=== PATIENT | female | born 1985 | race Caucasian/White ===

== ENCOUNTER 2017-05-26 08:34 | Inpatient (IN) | payer BC, OTHER ==
[~2017-05-26] VITALS: Ht 170.2 cm; Wt 61.2 kg
[2017-05-31 17:30] VITALS: BP 133/64
--- NOTE | 2017-05-31 17:30 | NUR ---
Pre-admission Notes: Seen client in intake at this time. Appears anxious and nervous about being in this environment. Reassurance was provided. Alert and oriented x 4. Verbally responsive. Able to answers questions readily during pre-admission interview. Patient education provided regarding the admission process. Patient verbalized good understanding. Able to answer questions readily regarding the admission process. Noted with good eye contact. Reports NKA. No seizure history. Verbalizes that she is here to detox from heroin and methamphetamine. Did not bring any home medications, She reports that she was diagnosed with Depression, Anxiety and Restless legs in 2016. She reports not having a PCP. COWS 3 BP 133/64, Pulse 99, Temp 97.3, RR 20, O2 sat at 99% via RA.
--- NOTE | 2017-05-31 17:47 | NUR ---
Admission Note: Admitted a 31 year old female under the care of Dr. Behzad Woods for medically supervised detoxification from opiates and methamphetamine. Patient remains alert and oriented x 4. Verbally responsive. Able to make her needs known. No changes in LOC noted from previous assessment. Respirations even and unlabored. No SOB noted. Skin warm and moist to touch. Body search done by female Yunno. No contraband was found. Skin is intact with multiple tattoos all over body noted. No rashes. No lesions noted. Abdomen soft and non-distended. BS (+) in all 4 quadrants. No complains of N/V/D or constipation noted. LBM was yesterday. Bladder non-distended. Able to provide urine for UDS and test. No complains of dysuria noted. Ambulatory ad dion with steady gait. Denies any complains of pain or discomfort noted. Complains of anxiety and is redirectable. Denies no seizure history and no allergies. Has past medical hx of depression, anxiety and restless legs, diagnosed in 2016. Reports not having a PCP. Longest period of sobriety was 45 days of August to September of 2016. Her LMP was 45 days ago. She reports taking Gabapentin 100 mg PO TID for restless legs but did not bring in any home medication, last taken was 2 months ago. Reports having substance abuse in the family, where mom, dad and grandfather uses. She reports that her usual withdrawal symptoms are watery eyes, yawning, stomach cramps, body aches and severe restless legs. 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 Substance Use as ff: 1. Heroin - since 28 years old. Uses 1 to 1 1/2 gram IV daily x 8 months, last use was on 05/31/2017 at 1530 "3 points." 2. Methamphetamine - since 28 years old. Smoked 1 gram every day to every other day x 8 months, last use was on 05/31/2017 at 0.1g at 1530. Treatment History: 1. [facility] - x [address] Woods in to see the patient at this time and entered orders. Orders noted and carried out.
[2017-05-31] MEDS ORDERED: GABA-532 PO (18:12)
[2017-05-31] MEDS ORDERED: METHOCARBAMOL 750 MG TABLET PO PRN (18:15)
[2017-05-31] MEDS ORDERED: MAG HYDROX/AL HYDROX/SIMETH 30 ML LIQUID UDC PO PRN (18:15)
[2017-05-31] MEDS ORDERED: MAGNESIUM HYDROXIDE 30 ML LIQUID UDC PO PRN (18:15)
[2017-05-31] MEDS ORDERED: TRAZODONE 50 MG TABLET PO PRN (18:15)
[2017-05-31] MEDS ORDERED: DICYCLOMINE HCL 20 MG TABLET PO PRN (18:15)
[2017-05-31] MEDS ORDERED: BUPRENORPHINE HCL 2 MG TAB.SUBL SL PRN (18:15)
[2017-05-31] MEDS ORDERED: LOPERAMIDE HCL 2 MG CAPSULE PO PRN ×2 (18:15)
[2017-05-31] MEDS ORDERED: MIRALAX 17 GM POWD.PACK PO PRN (18:15)
[2017-05-31] MEDS ORDERED: ACETAMINOPHEN 325 MG TABLET PO PRN (18:15)
[2017-05-31] MEDS ORDERED: HYDROXYZINE PAMOATE 25 MG CAPSULE PO PRN (18:15)
[2017-05-31] MEDS ORDERED: CLONIDINE HCL 0.1 MG TABLET PO PRN (18:15)
[2017-05-31 18:24] LABS: *AMPHETAMINE, URINE POSITIVE (NEGATIVE); *BARBITURATE, URINE NEGATIVE (NEGATIVE); *CANNABINOID, URINE NEGATIVE (NEGATIVE); *COCCAINE, URINE NEGATIVE (NEGATIVE); *OPIATE, URINE POSITIVE (NEGATIVE); *PHENCYCLIDINE SCREEN,URINE NEGATIVE (NEGATIVE)
--- NOTE | 2017-05-31 19:04 | NUR ---
End of Shift Notes: Patient admitted today for opiate and methamphetamine dependence. Taper will be started in AM. VS monitored. No significant abnormalities noted. NKA. FULL CODE. Regular diet. On fall and seizure precautions. Withdrawal symptoms closely monitored. Last COWS 3. Will continue to monitor closely.
--- NOTE | 2017-05-31 19:15 | NUR ---
START OF SHIFT Received 31 year old female patient admitted on 05/26/17 for Heroin and Methamphetamine dependency. Pt is full code with NKA. She reports a PMHx of depression, anxiety and restless legs. She reports using Heroin IV 1-1.5 gram daily for 8 months. Last dose was "3 points" on 05/31/17. And Methamphetamine (Smoke) 1 gram every day to every other day for 8 months. Last dose was 0.1 gram on 05/31/17. Per endorsement, pt did not receive or request PRN medications. Pt is alert and oriented x4, breathing is even and unlabored, safety measures in place. Will continue to monitor.
[2017-05-31 20:00] VITALS: BP 113/71
[2017-05-31 20:00] LABS: BASOPHILS # (AUTO) 0.1 K/uL (0.0-8.0); BASOPHILS % (AUTO) 0.7 % (0.0-2.0); EOSINOPHILS # (AUTO) 0.6 K/uL (0.0-0.7); EOSINOPHILS % (AUTO) 5.5 % (0.0-7.0); HEMATOCRIT 35.2 % (37-47); HEMOGLOBIN 11.1 G/DL (12.0-16.0); LYMPHOCYTES # (AUTO) 2.6 K/UL (0.8-4.8); LYMPHOCYTES % (AUTO) 22.6 % (20.5-51.5); MEAN CORPUSCULAR HEMOGLOBIN 22.5 UUG (27.0-31.0); MEAN CORPUSCULAR HGB CONC 31 g/dL (32.0-37.0); MEAN CORPUSCULAR VOLUME 71.7 FL (81.0-99.0); MONOCYTES # (AUTO) 0.5 K/UL (0.1-1.30); MONOCYTES % (AUTO) 4.3 % (0.0-11.0); NEUTROPHILS # (AUTO) 7.5 K/UL (1.8-8.9); NEUTROPHILS % (AUTO) 66.9 % (38.5-71.5); PLATELET COUNT (AUTO) 351 K/UL (150-450); RED BLOOD CELL COUNT(AUTO) 4.92 MIL/UL (4.2-5.4); WHITE BLOOD COUNT (AUTO) 11.3 K/UL (4.0-11.2)
[2017-05-31 20:10] LABS: ALANINE AMINOTRANSFERASE 18 U/L (14-59); ALKALINE PHOSPHATASE 79 U/L (50-136); ASPARTATE AMINOTRANSFERASE 17 U/L (15-37); BILIRUBIN,TOTAL 0.4 mg/dL (0.2-1.0); CARBON DIOXIDE 27 mmol/L (21-32); CHLORIDE 102 mmol/L (98-107); CREATININE 0.6 mg/dL (0.6-1.3); GLUCOSE 80 mg/dL (74-106); MAGNESIUM 2.3 mg/dL (1.8-2.4); POTASSIUM 3.7 mmol/L (3.5-5.1); TOTAL PROTEIN, SERUM 9.3 g/dL (6.4-8.2); UREA NITROGEN, BLOOD 17 mg/dL (7-18)
[2017-05-31 20:19] LABS: ETHANOL < 3 MG/DL (0-0); THYROID STIMULATING HORMONE 3.117 mIU/mL (0.358-3.740)
[2017-05-31 20:23] LABS: BAND % (MANUAL) 5 % (0-10); EOSINOPHILS % (MANUAL) 7 % (0-8); LYMPHOCYTES % (MANUAL) 23 % (20-40); MONOCYTES % (MANUAL) 5 % (2-10); NEUTROPHILS % (MANUAL) 60 % (42-75)
[2017-05-31 20:34] LABS: *URINE HCG, QUAL NEGATIVE (NEGATIVE)
[2017-05-31] MEDS: GABAPENTIN 300 MG CAPSULE PO SCH (22:15)
--- NOTE | 2017-05-31 22:15 | NUR ---
PRN TRAZODONE/VISTARIL Pt complains of anxiety and inability to sleep. Pt observed to be restless and unable to sit still. PRN Trazodone and Vistaril administered as ordered. Breathing is even and unlabored, safety measures in place. Will monitor effectiveness.
--- NOTE | 2017-05-31 23:15 | NUR ---
PRN TRAZODONE/VISTARIL REASSESSMENT PRN medications effective. Pt is lying in bed with eyes closed noted to be asleep. Respirations 16, breathing is even and unlabored. Safety measures in place. Will continue to monitor.
[2017-06-01] VITALS: BP 111/69
--- NOTE | 2017-06-01 04:00 | NUR ---
VITALS/COWS 0400 vitals refused. COWS deferred d/t pt lying in bed with eyes closed noted to be asleep. Respirations 16, breathing is even and unlabored, safety measures in place. Will monitor.
--- NOTE | 2017-06-01 07:21 | NUR ---
END OF SHIFT Pt is a 31 year old female patient admitted on 05/26/17 for Heroin and Methamphetamine dependency. Pt is full code with NKA. She reports a PMHx of depression, anxiety and restless legs. At 2215 she received PRN Vistaril and Trazodone. She slept a total of 8 hrs, Intake: 1500mL, Void: x3, BM:0. COWS:3. Pt remains alert and oriented x4, breathing is even and unlabored, safety measures in place. Endorsed to oncoming shift.
--- NOTE | 2017-06-01 07:28 | NUR ---
Start Of Shift Report Received, Pt is a 31 year old female patient admitted on 05/26/17 for Heroin and Methamphetamine dependency. Pt is full code regular diet, on fall and seizure precautions, denies any food or drug allergies but reports a PMHx of depression, anxiety and restless legs. Pt is on a 5 day Ativan taper, that started today. Pt received PRN Vistaril and Trazodone, both meds effective per night cleaner nurse. She slept a total of 8 hrs, Pts last COWS:3. Pt remains alert and oriented x4, breathing is even and unlabored, safety measures in place. Will continue to monitor and provide care.
[2017-06-01 08:00] VITALS: BP 104/67
[2017-06-01] MEDS ORDERED: TUBERCULIN,PURIF.PROT.DERIV. 5 TU/0.1 ML TEST ID ONE (09:00)
[2017-06-01] MEDS: MULTIVITAMINS,THERAPEUTIC TABLET PO SCH (09:33)
[2017-06-01] MEDS: GABAPENTIN 300 MG CAPSULE PO SCH ×3 (09:33→21:44)
[2017-06-01] MEDS: BUPRENORPHINE HCL 2 MG TAB.SUBL SL SCH ×5 (09:34→21:44)
[2017-06-01 12:00] VITALS: BP 112/68
[2017-06-01] MEDS: IBUPROFEN 600 MG TABLET PO PRN (13:34)
[2017-06-01] MEDS: ONDANSETRON ODT 4 MG TAB.RAPDIS SL PRN ×2 (13:34→21:44)
--- NOTE | 2017-06-01 13:34 | NUR ---
PRN MEDICATION Pt c/o nausea requested something for relief, non-pharmacological techniques interventions provided x3 and were not effective. PRN Zofran, Robaxin and Motrin administered PO, educated pt about s/e of medication and when to contact nurse. all needs met, all safety measures in place, will continue to monitor.
--- NOTE | 2017-06-01 14:34 | NUR ---
PRN MEDICATION Medication effective nausea decreased, and pt verbalized relief, all needs met will continue to monitor
[2017-06-01 16:00] VITALS: BP 116/70
[2017-06-01] MEDS: ONDANSETRON 4 MG/2 ML VIAL IM PRN (17:35)
--- NOTE | 2017-06-01 17:35 | NUR ---
PRN MEDICATION Pt had an episode of vomiting x1 requested something for relief, PRN Zofran IM administered, all needs met will continue to monitor.
--- NOTE | 2017-06-01 18:46 | NUR ---
Reassessment PRN Medication effective pt did not have any more episodes of vomiting and reported not feeling nauseas anymore, all needs met will continue to monitor.
--- NOTE | 2017-06-01 19:15 | NUR ---
START OF SHIFT Received 31 year old female patient admitted on 05/26/17 for Heroin IV and Meth dependency. Pt is full code with NKA. She reports a PMHx of depression, anxiety and restless legs. She reports using Heroin IV 1-1.5 gram daily for 8 months. Last dose "3 points" on 05/31/17. Methamphetamine (smoke) 1 gram every day-every other day. Last dose 0.1 gram on 05/31/17. Per endorsement, pt received PRN Robaxin, Motrin and Zofran. Pt placed on 5 day Subutex taper started today and tolerating well. Pt is alert and oriented x4, breathing is even and unlabored. Safety measures in place. Will continue to monitor.
--- NOTE | 2017-06-01 19:17 | NUR ---
End Of Shift Report given, Pt is a 31 year old female patient admitted on 05/26/17 for Heroin and Methamphetamine dependency. Pt is full code regular diet, on fall and seizure precautions, denies any food or drug allergies but reports a PMHx of depression, anxiety and restless legs. Pt is on a 5 day Ativan taper, VS monitored closely q 4 hours. Withdrawal symptoms were closely monitored. Initial COWS 13. Patient encouraged adequate PO fluid intake as tolerated. Patient presented with tremors and anxiety during the day. Last COWS 9. Per patient, Subutex has been helping her with her withdrawal symptoms. Did not eat much of her meals. Pt received PRN Robaxin, Motrin, Zofran SL and Zofran IM. Pt had 1 episode of vomiting, nut medications were effective and pt was no longer nauseous. Patient encouraged to attend group therapies/sessions to learn new coping skills to recent relapse, patient denies SI/HI. Participated in group and therapy sessions. All needs met and attended
[2017-06-01 20:00] VITALS: BP 125/85
--- NOTE | 2017-06-01 21:44 | NUR ---
PRN ZOFRAN/BENTYL Pt complains of abdominal spasms and nausea. PRN Zofran and Bentyl administered as ordered. Breathing even and unlabored. Safety measures in place. Will monitor.
--- NOTE | 2017-06-01 22:00 | NUR ---
MEDICATION REFUSAL 2100 dose of Subutex 4 mg refused. Risks/benefits explained x3. Pt still refused medication. Breathing even and unlabored, safety measures in place. Will continue to monitor.
--- NOTE | 2017-06-01 22:44 | NUR ---
PRN ZOFRAN/BENTYL REASSESSMENT PRN medication effective. Pt lying in bed with eyes closed noted to be asleep. Respirations 16, breathing is even and unlabored. Safety measures in place. Will continue to monitor.
--- NOTE | 2017-06-02 | NUR ---
VITALS REFUSED/COWS DEFERRED 0000 vitals refused. COWS deferred d/t pt lying in bed with eyes closed noted to be asleep. Respirations 16, breathing is even and unlabored. Safety measures in place. Will monitor.
--- NOTE | 2017-06-02 04:00 | NUR ---
VITALS REFUSED/COWS DEFERRED 0400 vitals refused. COWS deferred d/t pt lying in bed with eyes closed noted to be asleep. Respirations 16, breathing is even and unlabored. Safety measures in place. Will continue monitor.
--- NOTE | 2017-06-02 07:05 | NUR ---
Start of Shift Endorsement received from nightshift nurse. PT is a 31 y/o female admitted for Heroin and Meth . Pt has been placed on a 5 day Subutex taper. Pt is moderately withdrawing at this time AEB COWS 5 at 0400. Pt received PRN Zofran and Bentyl for stomach cramps and nausea. PT reports sleeping 7 hours. VS WNL. Full Code. PT is alert and oriented x4. Pt is in STABLE condition at this time. Remains compliant with medication and diet regimen. All needs have been met, All safety measures in place per hospital policy. Bed in lowest position, side rails up x2, call-light within reach. Will continue to monitor
--- NOTE | 2017-06-02 07:27 | NUR ---
END OF SHIFT Pt is 31 year old female patient admitted on 05/26/17 for Heroin IV and Meth dependency. Pt is full code with NKA. She reports a PMHx of depression, anxiety and restless legs. She continues on a 5 day Subutex taper and tolerating. At 2144 pt received PRN Zofran and Bentyl. She refused her 2100 dose of Subutex, risks and benefits were explained. Pt still refused. She slept a total of 8hrs, Intake: 855mL, Void: x1, BM:0, COWS:8. Pt remains alert and oriented x4, breathing is even and unlabored. Safety measures in place. Endorsed to oncoming shift.
[2017-06-02 08:00] VITALS: BP 130/75
[2017-06-02] MEDS: BUPRENORPHINE HCL 2 MG TAB.SUBL SL SCH ×3 (08:58→22:05)
[2017-06-02] MEDS: GABAPENTIN 300 MG CAPSULE PO SCH (08:58)
[2017-06-02] MEDS: MULTIVITAMINS,THERAPEUTIC TABLET PO SCH (08:59)
[2017-06-02] MEDS: IBUPROFEN 600 MG TABLET PO PRN (09:02)
[2017-06-02] MEDS: ONDANSETRON ODT 4 MG TAB.RAPDIS SL PRN (09:02)
[2017-06-02 11:10] LABS: HEPATITIS B SURFACE AG Negative (Negative)
[2017-06-02 12:00] VITALS: BP 119/80
[2017-06-02] MEDS: GABAPENTIN 400 MG CAPSULE PO SCH ×2 (15:11→22:00)
[2017-06-02] MEDS: DICYCLOMINE HCL 20 MG TABLET PO SCH ×2 (15:12→22:00)
[2017-06-02] MEDS: BACLOFEN 10 MG TABLET PO SCH ×2 (15:12→22:00)
[2017-06-02 16:00] VITALS: BP 136/80
--- NOTE | 2017-06-02 18:46 | NUR ---
End of Shift Endorsement given to nightshift nurse. PT is a 31 y/o female admitted for Heroin and Meth . Pt has been placed on a 5 day Subutex taper. Pt is moderately withdrawing at this time AEB COWS 8 at 1600. Pt received PRN Zofran for nausea, pt reports the medication was effective. Educated pt on medication and diet regimen. Encouraged pt to participate in groups and activities. Encouraged pt to drink more fluids. Intake: 555ml, Void x2, BM x0. VS WNL. Full Code. PT is alert and oriented x4. Pt is in STABLE condition at this time. Remains compliant with medication and diet regimen. All needs have been met, All safety measures in place per hospital policy. Bed in lowest position, side rails up x2, call-light within reach. Will continue to monitor
[2017-06-02 20:00] VITALS: BP 149/98
--- NOTE | 2017-06-02 20:00 | NUR ---
Start of Shift PT is a 31 y/o female admitted for Heroin and Meth . Pt has been placed on a 5 day Subutex taper. Pt is moderately withdrawing at this time AEB COWS 5 at 1999. Educated pt on medication and diet regimen. PT is alert and oriented x4 and full code. Pt is in STABLE condition at this time. Remains compliant with medication and diet regimen. All needs have been met, All safety measures in place per hospital policy. Pt is resting with bed in lowest position, side rails up x2, call-light within reach. Will continue to monitor
[2017-06-02 20:45] VITALS: BP 149/98
[2017-06-03] VITALS: BP 126/84
[2017-06-03 04:00] VITALS: BP 137/90
--- NOTE | 2017-06-03 07:05 | NUR ---
Start of Shift Endorsement received from nightshift nurse. PT is a 31 y/o female admitted for Heroin and Meth . Pt has been placed on a 5 day Subutex taper. Pt is moderately withdrawing at this time AEB COWS 5 at 0400. Pt has not received any PRN medications. Pt reports one episode of emesis and continues nausea. Pt refused zofran. PT reports sleeping 8 hours. VS WNL with periods of bradycardia. Full Code. PT is alert and oriented x4. Pt is in STABLE condition at this time. Remains compliant with medication and diet regimen. All needs have been met, All safety measures in place per hospital policy. Bed in lowest position, side rails up x2, call-light within reach. Will continue to monitor
[2017-06-03 08:00] VITALS: BP 128/84
[2017-06-03] MEDS ORDERED: BUPRENORPHINE HCL 2 MG TAB.SUBL SL SCH (09:00)
[2017-06-03] MEDS: ONDANSETRON 4 MG/2 ML VIAL IM PRN (09:03)
--- NOTE | 2017-06-03 09:19 | NUR ---
Therapist prompted client about group times. Client stated she would go to groups today if she feels better.
[2017-06-03] MEDS: GABAPENTIN 400 MG CAPSULE PO SCH ×3 (09:34→20:55)
[2017-06-03] MEDS: MULTIVITAMINS,THERAPEUTIC TABLET PO SCH (09:35)
[2017-06-03] MEDS: BACLOFEN 10 MG TABLET PO SCH ×3 (09:35→20:55)
[2017-06-03] MEDS: DICYCLOMINE HCL 20 MG TABLET PO SCH ×3 (09:35→20:55)
[2017-06-03] MEDS ORDERED: PANTOPRAZOLE SODIUM 40 MG TABLET.DR PO ONE (10:15)
[2017-06-03] MEDS ORDERED: PROMETHAZINE HCL 25 MG/1 ML VIAL IM ONE (10:15)
[2017-06-03] MEDS ORDERED: DICYCLOMINE HCL 20 MG/2 ML AMPUL IM ONE (10:15)
[2017-06-03 12:00] VITALS: BP 116/75
--- NOTE | 2017-06-03 13:10 | NUR ---
Midline insertion Pt had a midline inserted in the left should at 1310. Will began IV fluids per MD orders
[2017-06-03] MEDS: IV D5 1/2 NS 1000 ML 1,000 ML IV PRN ×2 (13:20→22:33)
[2017-06-03] MEDS: BUPRENORPHINE HCL 2 MG TAB.SUBL SL SCH ×2 (15:46→20:56)
[2017-06-03 16:00] VITALS: BP 127/73
--- NOTE | 2017-06-03 18:28 | NUR ---
End of Shift Endorsement given to nightshift nurse. PT is a 31 y/o female admitted for Heroin and Meth . Pt has been placed on a 5 day Subutex taper. Pt is moderately withdrawing at this time AEB COWS 6 at 1600. Pt received PRN Zofran IM for nausea, pt has also received one time dose of Phenergan and Bentyl IM. Pt has a 18g Midline inserted in her left shoulder at 1310. PT has been placed on D5 1/2 NS at 120ml/hr per Dr. Woods. Pt has been encouraged to drink more fluids and to eat. PT has not been eating. PT has snacked on some crackers and ice cream. Encouraged pt to participate in groups and activities. . Intake: 500ml, Void x1, BM x0. VS WNL. Full Code. PT is alert and oriented x4. Pt is in STABLE condition at this time. Remains compliant with medication and diet regimen. All needs have been met, All safety measures in place per hospital policy. Bed in lowest position, side rails up x2, call-light within reach. Will continue to monitor
--- NOTE | 2017-06-03 19:45 | NUR ---
START OF SHIFT Received report from day shift nurse. Pt is lying in bed resting. She is a 31 yo female admitted to [facility] on 05/31 for Opiate and Meth dependence. Pt is A&Ox3 and ambulatory. NKA, full code status, and on a regular diet. PMH of depression, anxiety, and restless legs. On admission she admitted to using heroin IV 1-1.5 grams per day and methamphetamine 1 gram. She had a mid-line placed on the left upper arm today that is patent and intact. D5 1/2 NS running per orders. Pt has visible perspiration on the forehead, chills, and reports mild body aches. She denies N/V. Fall and seizure precautions in place. Bed is down with call light in reach.
[2017-06-03 20:00] VITALS: BP 124/87
[2017-06-04] VITALS: BP 130/91
[2017-06-04 04:00] VITALS: BP 113/78
[2017-06-04] MEDS: IV D5 1/2 NS 1000 ML 1,000 ML IV PRN ×2 (06:53→19:49)
[2017-06-04] MEDS: PANTOPRAZOLE SODIUM 40 MG TABLET.DR PO SCH (06:54)
--- NOTE | 2017-06-04 07:20 | NUR ---
END OF SHIFT Report provided to day shift nurse. Pt is lying in bed resting. She is a 31 yo female admitted to [facility] on 05/31 for Opiate and Meth dependence. She is alert, oriented, and ambulatory. NKA, full code status, and on a regular diet. PMH of depression, anxiety, and restless legs. On admission she admitted to using heroin IV 1-1.5 grams per day and methamphetamine 1 gram. She had a mid-line placed on the left upper arm yesterday that is patent and intact. D5 1/2 NS running per orders. Dressing change to be performed today. Pt had visible perspiration, hot and cold flashes, and body aches. No N/V throughout the shift. Last COWS was 3 after medication administration. She drank 1210mL and slept for 10 hours. Safety measures in place. Bed is down with call light in reach.
--- NOTE | 2017-06-04 08:00 | NUR ---
START OF SHIFT Rcvd endorsement from ongoing nurse, 31 y/o admitted for heroin withdrawal, she is on day 4rd of 5 Subutex taper. tolerating well, with no ASE, last COWS 3 @ 2400. She had an uneventful night, she slept 10 hrs. She has a mid-line on L upper arm patent, dressing intact. D5 1/2 NS running at prescribed rate for hydration, client tolerating well. Client is in bed, a/o x4. she presents with depressed mood, flat affect, she reports restless legs, abdominal cramps, and fatigue, she denies any N/V/D. Client with moist skin, abdomen soft, nontender, quadrant x 4 active. Encourage client to increase fluid intake as tolerated to facilitate detox. Encourage client to attend group therapy for skills to maintain sobriety. She denies any history of withdrawal induced seizures. Client is on seizure precautions. NKA, full code, regular diet. Call light within reach. Side rails x 2 up/padded. Will continue to monitor.
[2017-06-04 08:17] LABS: BASOPHILS # (AUTO) 0.3 K/uL (0.0-8.0); BASOPHILS % (AUTO) 2.2 % (0.0-2.0); EOSINOPHILS # (AUTO) 0.8 K/uL (0.0-0.7); EOSINOPHILS % (AUTO) 7.1 % (0.0-7.0); HEMATOCRIT 35.4 % (37-47); HEMOGLOBIN 11.3 G/DL (12.0-16.0); LYMPHOCYTES # (AUTO) 3.4 K/UL (0.8-4.8); MEAN CORPUSCULAR HEMOGLOBIN 22.9 UUG (27.0-31.0); MEAN CORPUSCULAR HGB CONC 32 g/dL (32.0-37.0); MONOCYTES # (AUTO) 0.7 K/UL (0.1-1.30); MONOCYTES % (AUTO) 5.7 % (0.0-11.0); NEUTROPHILS # (AUTO) 6.4 K/UL (1.8-8.9); PLATELET COUNT (AUTO) 380 K/UL (150-450); RED BLOOD CELL COUNT(AUTO) 4.92 MIL/UL (4.2-5.4); WHITE BLOOD COUNT (AUTO) 11.6 K/UL (4.0-11.2)
[2017-06-04 08:49] LABS: CREATININE 0.7 mg/dL (0.6-1.3); MAGNESIUM 2.2 mg/dL (1.8-2.4); PHOSPHOROUS 2.7 mg/dL (2.5-4.9); POTASSIUM 3.2 mmol/L (3.5-5.1)
[2017-06-04 08:53] VITALS: BP 109/71
[2017-06-04] MEDS: GABAPENTIN 400 MG CAPSULE PO SCH ×3 (09:52→21:02)
[2017-06-04] MEDS: MULTIVITAMINS,THERAPEUTIC TABLET PO SCH (09:53)
[2017-06-04] MEDS: DICYCLOMINE HCL 20 MG TABLET PO SCH ×3 (09:53→21:02)
[2017-06-04] MEDS: BACLOFEN 10 MG TABLET PO SCH ×3 (09:53→21:02)
[2017-06-04] MEDS: BUPRENORPHINE HCL 2 MG TAB.SUBL SL SCH ×3 (09:53→21:02)
--- NOTE | 2017-06-04 10:00 | NUR ---
MD NOTIFICATION Dr. Aly made aware of abnormal labs, client is asymptomatic. Will continue to monitor.
[2017-06-04 10:26] LABS: BASOPHILS % (MANUAL) 2 % (0-2); EOSINOPHILS % (MANUAL) 9 % (0-8); LYMPHOCYTES % (MANUAL) 27 % (20-40); MONOCYTES % (MANUAL) 4 % (2-10); NEUTROPHILS % (MANUAL) 57 % (42-75)
[2017-06-04 10:31] LABS: REACTIVE LYMPHOCYTES 1 % (0-0)
[2017-06-04 12:55] VITALS: BP 104/78
[2017-06-04] MEDS: POTASSIUM CHLORIDE 50 ML IV SCH ×4 (12:58→16:36)
[2017-06-04 13:45] LABS: *BILIRUBIN,URIN NEGATIVE (NEGATIVE); *BLOOD, URINE NEGATIVE (NEGATIVE); *CLARITY,URINE CLEAR (CLEAR); *COLOR,URINE YELLOW (YELLOW); *KETONES,URINE NEGATIVE (NEGATIVE); *PROTEIN,URINE NEGATIVE (NEGATIVE); LEUKOCYTE ESTERASE ,URINE NEGATIVE (NEGATIVE); NITRITE, URINE NEGATIVE (NEGATIVE); UGLUCOSE NEGATIVE (NEGATIVE)
[2017-06-04 13:56] LABS: BACTERIA,URINE NONE SEEN /HPF (NONE SEEN); RBC,URINE NONE SEEN /HPF (0-3); SQUAMOUS EPITHELIAL CELL,UR MODERATE /HPF (NONE SEEN); WBC,URINE 0-3 /HPF (0-3)
--- NOTE | 2017-06-04 14:00 | NUR ---
MD Notification Dr. Aly notified of urinalysis results, NNO at this time.
--- NOTE | 2017-06-04 16:05 | NUR ---
Mid-line dressing changed, line intact/patent, no redness or swelling noted, client tolerated well.
[2017-06-04 16:55] VITALS: BP 113/70
--- NOTE | 2017-06-04 18:55 | NUR ---
END OF SHIFT Will endorse client to incoming nurse, client is in room, a/o x 4, she continues to present with depressed mood, flat affect, abdominal cramps, restless legs, decreased appetite, and fatigue. She denies any N/V/D. She is on 4th of 5 day Subutex taper, tolerating well, last COWS 4 @ 1700. She has a mid-line on L upper arm patent, dressing changed @ 1600, no redness or swelling noted. Client continues on fluid therapy for hydration, tolerating well. She completed KCl 10 mEq/50 mL IVpb x 4 bags for hypokalemia, tolerated well. Urinalysis ordered, Dr. Aly notified of results, NNO at this time. Client is fully ambulatory. Client was not compliant with group therapy. Adequate PO intake 2105mL, void x 2. Call light within reach. Safety measures rendered and all needs met.
[2017-06-04 20:00] VITALS: BP 100/60
--- NOTE | 2017-06-04 20:00 | NUR ---
1999 Patient received awake, alert and lying flat in her bed, with her head towards the foot of her bed, watching television. Patient responds to nurse's greeting and introduction with, " Hi, how are up?" Patient is oriented to person, place, day, date and her personal situation. Easily reoriented to time. Patient's color is tannish-pink and her skin is warm, very slightly moist and intact. New IV bag of D5.45 NS hung (1000 ml) to run 120 ml/hr via IV pump into left upper outer arm. IV site is clean, dry and has clean site dressing noted intact. No sx of any infiltration at needle site. Patient denies any pain or other discomfort and she states that she has attended some [facility] groups, however she did not attend PM group tonight. Patient states further that she did " eat a little of her regular diet trays today and she is taking fluids "better" this evening. Vital signs are: 98.3-75-16 100/60, O2 Sat 100%, COWS 2 . Patient offers no requests for anything or c/o anything at this time, and she is cooperative and verbally appropriate when interacting with nurse. Patient was admitted on 05/31/17 for Heroin and Methamphetamine withdrawal and she is currently on a 5-Day Subutex medication taper, which she is apparently tolerating well thus far. Bed is locked and bed rails are up X 2 and call light within patient's easy reach.
--- NOTE | 2017-06-05 | NUR ---
Patient refused to be awakened for V/S to be done at this time.
--- NOTE | 2017-06-05 04:00 | NUR ---
Patient refused to be awakened for V/S to be done at this time.
--- NOTE | 2017-06-05 06:30 | NUR ---
0630 Patient slept a total of 8 hours and she had 2 voids and no stools. Total intake was 1,109 ml p.o. IV continues at 120ml/hr-D5.45 NS via IV pump. No sx infiltration at IV site, left upper, outer arm. V/SS afebrile, last CIWA 1 at 0000. No PRN medications given this shift. Patient took shower and went out hospital patio X 1 for smoke during this shift. Patient is presently sleeping comfortably with eyes closed and respirations quiet, even, unlabored at 12.
[2017-06-05] MEDS: PANTOPRAZOLE SODIUM 40 MG TABLET.DR PO SCH (07:12)
--- NOTE | 2017-06-05 07:54 | NUR ---
START OF SHIFT Rcvd endorsement from ongoing nurse, 31 y/o admitted for heroin withdrawal, she is on last day of 5 Subutex taper. tolerating well, with no ASE, last COWS 2 @ 2400. She had an uneventful night, she slept 8 hrs. She has a mid-line on L upper arm patent, dressing intact. D5 1/2 NS running at prescribed rate for hydration, client tolerating well. Client is in bed, a/o x4. she presents with anxious mood, flat affect, she denies any N/V/D. Client with moist skin, abdomen soft, nontender, quadrant x 4 active, she reports restless legs, abdominal cramps, and fatigue. Encourage client to increase fluid intake as tolerated to facilitate detox. Encourage client to attend group therapy for skills to maintain sobriety. She denies any history of withdrawal induced seizures. Client is on seizure precautions. NKA, full code, regular diet. Call light within reach. Side rails x 2 up/padded. Will continue to monitor.
[2017-06-05 08:20] VITALS: BP 113/62
[2017-06-05 08:57] LABS: BASOPHILS # (AUTO) 0.1 K/uL (0.0-8.0); BASOPHILS % (AUTO) 0.8 % (0.0-2.0); EOSINOPHILS # (AUTO) 1.2 K/uL (0.0-0.7); EOSINOPHILS % (AUTO) 11.5 % (0.0-7.0); HEMATOCRIT 34.6 % (37-47); LYMPHOCYTES # (AUTO) 3.8 K/UL (0.8-4.8); LYMPHOCYTES % (AUTO) 37.6 % (20.5-51.5); MEAN CORPUSCULAR HEMOGLOBIN 23.1 UUG (27.0-31.0); MEAN CORPUSCULAR HGB CONC 32 g/dL (32.0-37.0); MEAN CORPUSCULAR VOLUME 72.5 FL (81.0-99.0); MONOCYTES # (AUTO) 0.6 K/UL (0.1-1.30); MONOCYTES % (AUTO) 6.2 % (0.0-11.0); NEUTROPHILS # (AUTO) 4.5 K/UL (1.8-8.9); NEUTROPHILS % (AUTO) 43.9 % (38.5-71.5); PLATELET COUNT (AUTO) 354 K/UL (150-450); RED BLOOD CELL COUNT(AUTO) 4.77 MIL/UL (4.2-5.4); WHITE BLOOD COUNT (AUTO) 10.2 K/UL (4.0-11.2)
[2017-06-05] MEDS: GABAPENTIN 400 MG CAPSULE PO SCH ×3 (09:00→21:25)
[2017-06-05] MEDS: DICYCLOMINE HCL 20 MG TABLET PO SCH ×3 (09:00→21:25)
[2017-06-05] MEDS ORDERED: BUPRENORPHINE HCL 2 MG TAB.SUBL SL SCH (09:00)
[2017-06-05] MEDS: BACLOFEN 10 MG TABLET PO SCH ×3 (09:00→21:25)
[2017-06-05] MEDS: MULTIVITAMINS,THERAPEUTIC TABLET PO SCH (09:00)
[2017-06-05 09:11] LABS: CREATININE 0.7 mg/dL (0.6-1.3); MAGNESIUM 2.1 mg/dL (1.8-2.4); PHOSPHOROUS 3.6 mg/dL (2.5-4.9); POTASSIUM 3.1 mmol/L (3.5-5.1)
[2017-06-05] MEDS: IV D5 1/2 NS 1000 ML 1,000 ML IV PRN (09:33)
--- NOTE | 2017-06-05 11:00 | NUR ---
MD NOTIFICATION Dr. lAy made aware of abnormal labs, client is asymptomatic. Will continue to monitor.
[2017-06-05 12:15] LABS: BAND % (MANUAL) 3 % (0-10); EOSINOPHILS % (MANUAL) 10 % (0-8); LYMPHOCYTES % (MANUAL) 42 % (20-40); MONOCYTES % (MANUAL) 3 % (2-10); NEUTROPHILS % (MANUAL) 42 % (42-75)
[2017-06-05 12:33] VITALS: BP 106/62
[2017-06-05 12:48] LABS: *AMPHETAMINE, URINE NEGATIVE (NEGATIVE); *BARBITURATE, URINE NEGATIVE (NEGATIVE); *CANNABINOID, URINE NEGATIVE (NEGATIVE); *COCCAINE, URINE NEGATIVE (NEGATIVE); *OPIATE, URINE POSITIVE (NEGATIVE); *PHENCYCLIDINE SCREEN,URINE NEGATIVE (NEGATIVE)
[2017-06-05] MEDS ORDERED: TRAZ-144 PO (13:39)
[2017-06-05] MEDS ORDERED: DICY20TA28 PO (13:39)
[2017-06-05] MEDS ORDERED: METH-406 PO (13:39)
[2017-06-05] MEDS ORDERED: BACL10TA PO (13:39)
[2017-06-05] MEDS ORDERED: HYDR-3895 PO (13:39)
[2017-06-05] MEDS ORDERED: GABA-536 PO (13:39)
[2017-06-05] MEDS ORDERED: POTASSIUM CHLORIDE 20 MEQ POWDER PACKET PO ONE (14:15)
[2017-06-05 16:55] VITALS: BP 106/62
--- NOTE | 2017-06-05 18:39 | NUR ---
END OF SHIFT Will endorse client to incoming nurse, client is in room, a/o x 4, she continues to present with depressed mood, abdominal cramps, restless legs, and fatigue. She denies any N/V/D. She completed 5 day Subutex taper, tolerated well, with no ASE, last COWS 3 @ 1700. She has a mid-line on L upper arm patent, dressing intact. Potassium 3.1 replaced with Potassium Chloride powder pkt 40 mEq. Client is fully ambulatory. Client was compliant with 2/3 of group therapy. Adequate PO intake 1700mL, void x 5. Call light within reach. Safety measures rendered and all needs met.
[2017-06-05 20:00] VITALS: BP 114/66
--- NOTE | 2017-06-05 20:00 | NUR ---
1999 Patient received awake, alert and sitting up on her bed watching television. Upon seeing nurse, patient states, " Oh, hi, how are you?" Patient's color is pink and her skin is warm, dry and intact. Saline lock intact and patent to left upper arm with small, clean, dry and intact dressing noted at needle site. Saline lock flushed with 10 ml NS for patency. Patient is oriented to person, place, day, date, time and her personal situation. Patient states that she continues to attend [facility] groups regularly and she states further that she ate her regular diet trays, "a little better today" and she is taking fluids ad dino with no gastric issues. Patient denies any pain or other discomforts and she offers no requests or complaints at this time. Patient states that she is leaving tomorrow for a rehab facility in [facility]. Vital signs are: 98-62-16 114/66, O2 Sat 100 %, COWS 1 . Patient was admitted on 05/31/17 for Heroin and Methamphetamine withdrawal and her 5-Day Subutex medication taper has been completed at this time. Patient is friendly, cooperative and verbally appropriate when interacting with nurse. Bed is locked and in lowest position, bed rails are up X 1 and call light within patient's easy reach.
[2017-06-05] MEDS ORDERED: POTASSIUM CHLORIDE 20 MEQ TAB.PRT.SR PO ONE (22:15)
[2017-06-05] MEDS ORDERED: POTASSIUM CHLORIDE 20 MEQ TAB.PRT.SR ONE (22:40)
--- NOTE | 2017-06-06 | NUR ---
Patient refused to be awakened for V/S to be done at this time.
--- NOTE | 2017-06-06 04:00 | NUR ---
Patient refused to be awakened for V/S to be done at this time.
--- NOTE | 2017-06-06 06:30 | NUR ---
0630 Patient slept a total of 6 hours and she had 2 voids and no stools. Total intake was 710 ml p.o. No prn medications given this shift. V/SS afebrile, last COWS 1 at 1999. Patient is presently sleeping comfortably with eyes closed and respirations quiet, even, unlabored at 12.
[2017-06-06] MEDS: PANTOPRAZOLE SODIUM 40 MG TABLET.DR PO SCH (06:51)
--- NOTE | 2017-06-06 07:05 | NUR ---
Start of Shift Endorsement received from nightshift nurse. PT is a 31 y/o female admitted for Heroin and Meth . Pt has been placed on a 5 day Subutex taper. PT has completed the taper and has been scheduled for discharge today. All discharge paperwork has been signed and dated. Discharge education has been provided. Pt is moderately withdrawing at this time AEB COWS 1 at 0400. Pt has not received any PRN medications. Pt reports sleeping 6 hours. VS WNL with periods of bradycardia. Full Code. PT is alert and oriented x4. Pt is in STABLE condition at this time. Remains compliant with medication and diet regimen. All needs have been met, All safety measures in place per hospital policy. Bed in lowest position, side rails up x2, call-light within reach. Will continue to monitor
[2017-06-06 08:00] VITALS: BP 106/62
[2017-06-06] MEDS: MULTIVITAMINS,THERAPEUTIC TABLET PO SCH (08:38)
[2017-06-06] MEDS: BACLOFEN 10 MG TABLET PO SCH (08:38)
[2017-06-06] MEDS: DICYCLOMINE HCL 20 MG TABLET PO SCH (08:38)
[2017-06-06] MEDS: GABAPENTIN 400 MG CAPSULE PO SCH (08:38)
[2017-06-06 09:31] LABS: BASOPHILS # (AUTO) 0.3 K/uL (0.0-8.0); BASOPHILS % (AUTO) 2.7 % (0.0-2.0); EOSINOPHILS # (AUTO) 1.1 K/uL (0.0-0.7); EOSINOPHILS % (AUTO) 9.9 % (0.0-7.0); HEMATOCRIT 34.2 % (37-47); HEMOGLOBIN 10.9 G/DL (12.0-16.0); LYMPHOCYTES # (AUTO) 3.7 K/UL (0.8-4.8); LYMPHOCYTES % (AUTO) 32.3 % (20.5-51.5); MEAN CORPUSCULAR HEMOGLOBIN 23.3 UUG (27.0-31.0); MEAN CORPUSCULAR HGB CONC 32 g/dL (32.0-37.0); MEAN CORPUSCULAR VOLUME 72.9 FL (81.0-99.0); MONOCYTES # (AUTO) 0.3 K/UL (0.1-1.30); MONOCYTES % (AUTO) 2.6 % (0.0-11.0); NEUTROPHILS % (AUTO) 52.5 % (38.5-71.5); PLATELET COUNT (AUTO) 200 K/UL (150-450); RED BLOOD CELL COUNT(AUTO) 4.69 MIL/UL (4.2-5.4); WHITE BLOOD COUNT (AUTO) 11.4 K/UL (4.0-11.2)
--- NOTE | 2017-06-06 09:52 | NUR ---
Discharge note Pt has been discharged from [facility] to [facility]. Discharge educated has been provided. All documentation has been signed and dated. Midline has been removed and documentation has been completed. PT denies any suicidal and homicidal ideations at this time. VS WNL. All pt belongings, prescriptions and medications have been returned to the pt. Pt left the facility on 06/06/17 at 0952. has been notified.
[2017-06-06 09:54] LABS: EOSINOPHILS % (MANUAL) 12 % (0-8); LYMPHOCYTES % (MANUAL) 31 % (20-40); MONOCYTES % (MANUAL) 2 % (2-10); NEUTROPHILS % (MANUAL) 55 % (42-75)
== END 2017-06-06 09:52 | disposition other institution (70) | DRG 895 ==
LOC: SRC 05-31 17:00
PROVIDERS: ADMIT Internal Medicine; ATTEND Internal Medicine
PROC: HZ2ZZZZ Detoxification Services for Substance Abuse Treatment (ICD-10-PCS; principal; 2017-05-31)
PROC: HZ31ZZZ Individual Counseling for Substance Abuse Treatment, Behavioral (ICD-10-PCS; 2017-06-03)
PROC: 05H633Z Insertion of Infusion Device into Left Subclavian Vein, Percutaneous Approach (ICD-10-PCS; 2017-06-03)
DX: F11.23 Opioid dependence with withdrawal (principal); F41.9 Anxiety disorder, unspecified; G25.81 Restless legs syndrome; Z90.49 Acquired absence of other specified parts of digestive tract; Z81.8 Family history of other mental and behavioral disorders; Z81.3 Family history of other psychoactive substance abuse and dependence; F17.290 Nicotine dependence, other tobacco product, uncomplicated; Z65.3 Problems related to other legal circumstances; F15.10 Other stimulant abuse, uncomplicated; F13.10 Sedative, hypnotic or anxiolytic abuse, uncomplicated; D50.9 Iron deficiency anemia, unspecified; D72.1 Eosinophilia; I10 Essential (primary) hypertension; Z91.89 Other specified personal risk factors, not elsewhere classified; B99.9 Unspecified infectious disease
CPT/HCPCS: 36415; 80307; 80324; 80361; 83735; 84100; 84443; 84703; 85025; 86580; 86592; 86705; 86803; 87340; 87806; G0480; J0500; J2405; J2550; J3480; J3490; Q0162

== ENCOUNTER 2017-08-06 14:36 | Inpatient (IN) | payer BC, OTHER ==
[~2017-08-06] VITALS: Ht 170.2 cm; Wt 54.4 kg
[~2017-08-06 14:36] MED LIST: BACL10TA PO; DICY20TA28 PO; GABA-536 PO; HYDR-3895 PO; METH-406 PO; TRAZ-144 PO
[2017-08-06] MEDS ORDERED: ACETAMINOPHEN 325 MG TABLET PO PRN (22:45)
[2017-08-06] MEDS ORDERED: CLONIDINE HCL 0.1 MG TABLET PO PRN (22:45)
[2017-08-06] MEDS ORDERED: MAGNESIUM HYDROXIDE 30 ML LIQUID UDC PO PRN (22:45)
[2017-08-06] MEDS ORDERED: LORAZEPAM 1 MG TABLET PO PRN (22:45)
[2017-08-06] MEDS ORDERED: diphenhydrAMINE 50 MG CAPSULE PO PRN (22:45)
[2017-08-06] MEDS ORDERED: LOPERAMIDE HCL 2 MG CAPSULE PO PRN ×2 (22:45)
[2017-08-06] MEDS ORDERED: METHOCARBAMOL 750 MG TABLET PO PRN (22:45)
[2017-08-06] MEDS ORDERED: MIRALAX 17 GM POWD.PACK PO PRN (22:45)
[2017-08-06] MEDS ORDERED: BUPRENORPHINE HCL 2 MG TAB.SUBL SL PRN (22:45)
[2017-08-06] MEDS ORDERED: ONDANSETRON ODT 4 MG TAB.RAPDIS SL PRN (22:45)
[2017-08-06] MEDS ORDERED: MAG HYDROX/AL HYDROX/SIMETH 30 ML LIQUID UDC PO PRN (22:45)
[2017-08-06] MEDS ORDERED: HYDROXYZINE PAMOATE 25 MG CAPSULE PO PRN (22:45)
[2017-08-06] MEDS ORDERED: DICYCLOMINE HCL 20 MG TABLET PO PRN (22:45)
[2017-08-06] MEDS ORDERED: IBUPROFEN 600 MG TABLET PO PRN (22:45)
--- NOTE | 2017-08-06 23:15 | NUR ---
Pre-admission Notes: Seen client in intake at this time. Appears anxious and nervous about being in this environment. Reassurance was provided. Alert and oriented x 4. Verbally responsive. Able to answers questions readily during pre-admission interview. Patient education provided regarding the admission process. Patient verbalized good understanding. Able to answer questions readily regarding the admission process. Noted with good eye contact. Reports NKA. No seizure history. Verbalizes that she is here to detox from heroin and methamphetamine. She reports that she was diagnosed with Depression, Anxiety and Restless legs in 2016. She reports not having a PCP. CY=529/72, JG=388, Temp=98.2, RR=16 , unlabored and even., Hcotr=439 lbs, Height=5'7''. COWS=4. Pt. will be admitted to the unit.
[2017-08-06 23:50] LABS: *AMPHETAMINE, URINE POSITIVE (NEGATIVE); *BARBITURATE, URINE NEGATIVE (NEGATIVE); *CANNABINOID, URINE NEGATIVE (NEGATIVE); *COCCAINE, URINE NEGATIVE (NEGATIVE); *OPIATE, URINE POSITIVE (NEGATIVE); *PHENCYCLIDINE SCREEN,URINE NEGATIVE (NEGATIVE)
[2017-08-07] VITALS: BP 130/72
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
[2017-08-07 04:00] VITALS: BP 122/72
--- NOTE | 2017-08-07 06:36 | NUR ---
END OF SHIFT NOTE : Pt. is a 31 year old female, admitted under the care of Dr. Behzad Woods for medically supervised detoxification from opiates and methamphetamine on 08/06/2017. Pt. is NKA, FULL Code, on Reg. Diet. Skin warm and dry to touch. Complains of anxiety and is redirectable. Denies no seizure history and no allergies. Has past medical hx of depression, anxiety and restless legs, diagnosed in 2016. Pt remains compliant with the treatment plan. No PRNs were given during my shift. V/S remain WNL. RR=16, even and unlabored, lungs clear upon auscultation, abdomen soft and non- distended. Pt denies nausea, vomiting and diarrhea. LAST COWS=4 at 0400 , MMFKXQ=562 ml, voided x1 , slept 5 hours. Safety measures in place : bed on lowest position with side rails x2 up for safety, call light within reach. Will continue to monitor closely and offer help.
--- NOTE | 2017-08-07 07:30 | NUR ---
Start of shift note; Received report from night nurse. Patient is a 31 year old female admitted on 08/06/17 for Opiate/ Methamphetamine dependence. Patient was placed on a 5 day Subutex taper. Patient reported history of anxiety, depression, restless leg syndrome. Patient to start a 5 day Subutex taper today. Patient slept for 5 hours. Patient is on fall and seizure precaution. Bed in lowest position, call light within reach. Will continue to monitor patient.
[2017-08-07 07:46] LABS: BASOPHILS # (AUTO) 0.1 K/uL (0.0-8.0); BASOPHILS % (AUTO) 1.1 % (0.0-2.0); EOSINOPHILS # (AUTO) 0.6 K/uL (0.0-0.7); EOSINOPHILS % (AUTO) 7.3 % (0.0-7.0); HEMATOCRIT 33.9 % (31.2-41.9); LYMPHOCYTES # (AUTO) 3.2 K/uL (20.0-40.0); LYMPHOCYTES % (AUTO) 39.7 % (20.5-51.5); MEAN CORPUSCULAR HEMOGLOBIN 23.3 uug (24.7-32.8); MEAN CORPUSCULAR HGB CONC 33 g/dL (32.3-35.6); MEAN CORPUSCULAR VOLUME 71.6 fL (75.5-95.3); MONOCYTES # (AUTO) 0.8 K/uL (2.0-10.0); MONOCYTES % (AUTO) 9.9 % (0.0-11.0); NEUTROPHILS # (AUTO) 3.4 K/uL (1.8-8.9); PLATELET COUNT (AUTO) 304 K/uL (179-408); RED BLOOD CELL COUNT(AUTO) 4.74 MIL/uL (3.63-4.92)
[2017-08-07 07:57] LABS: *URINE HCG, QUAL NEGATIVE (NEGATIVE)
[2017-08-07 08:00] VITALS: BP 108/71
[2017-08-07 08:01] LABS: WHITE BLOOD COUNT (AUTO) 8.1 K/uL (3.8-11.8)
[2017-08-07 08:22] LABS: BILIRUBIN,TOTAL 0.3 mg/dL (0.2-1.0); CREATININE 0.7 mg/dL (0.6-1.3); POTASSIUM 4.3 mmol/L (3.5-5.1)
[2017-08-07] MEDS: BUPRENORPHINE HCL 2 MG TAB.SUBL SL SCH ×4 (08:34→21:21)
[2017-08-07] MEDS: MULTIVITAMINS,THERAPEUTIC TABLET PO SCH (08:34)
[2017-08-07] MEDS ORDERED: GABAPENTIN 300 MG CAPSULE PO SCH (09:00)
[2017-08-07] MEDS ORDERED: TUBERCULIN,PURIF.PROT.DERIV. 5 TU/0.1 ML TEST ID ONE (09:00)
[2017-08-07 09:08] LABS: BAND % (MANUAL) 3 % (0-10); EOSINOPHILS % (MANUAL) 9 % (0-8); NEUTROPHILS % (MANUAL) 41 % (42-75)
[2017-08-07 09:11] LABS: LYMPHOCYTES % (MANUAL) 42 % (20-40); MONOCYTES % (MANUAL) 5 % (2-10)
[2017-08-07] MEDS: ONDANSETRON 4 MG/2 ML VIAL IM PRN ×2 (10:08→16:15)
--- NOTE | 2017-08-07 10:08 | NUR ---
PRN medication; Patient reported emesis 2 times and nausea. PRN Zofran IM given as per MD order. Will monitor patient for effectiveness of medication.
--- NOTE | 2017-08-07 10:38 | NUR ---
RE-assessment; Patient denies further episodes of emesis. PRN medication is effective.
[2017-08-07 12:00] VITALS: BP 118/77
[2017-08-07] MEDS: GABAPENTIN 300 MG CAPSULE PO SCH ×2 (14:52→21:20)
[2017-08-07 16:00] VITALS: BP 100/73
--- NOTE | 2017-08-07 16:22 | NUR ---
PRN medication; Patient is complaining of nausea and 1 episode of emesis. PRN Zofran IM given on right deltoid area. Will continue to monitor patient for effectiveness of medication.
--- NOTE | 2017-08-07 16:52 | NUR ---
Re-assessment; Patient denies nausea at this time. No further emesis noted. PRN medication is effective.
--- NOTE | 2017-08-07 18:30 | NUR ---
End of shift note; Patient is AOX4. Patient is a 31 year old female admitted on 08/06/17 for Opiate/ Methamphetamine dependence. Patient was placed on a 5 day Subutex taper, no adverse reactions noted. Patient reported history of anxiety, depression, restless leg syndrome. Patient to start a 5 day Subutex taper today. Patient remained compliant with treatment plan and medication regime. Medications were effective in reducing withdrawal symptoms. Met all needs.
--- NOTE | 2017-08-07 19:15 | NUR ---
START OF SHIFT NOTE : Pt. is a 31 year old female, admitted under the care of Dr. Behzad Woods for medically supervised detoxification from opiates and methamphetamine on 08/06/2017. Pt. is NKA, FULL Code, on Reg. Diet. Skin warm and dry to touch. Complains of anxiety and is redirect able. Denies no seizure history and no allergies. Has past medical hx of depression, anxiety and restless legs, diagnosed in 2016. Pt remains compliant with the treatment plan. She started on Subutex 5 day taper on 08/07/2017, tolerating well. Pt. is sleeping in her bed, RR=11, unlabored and even. Safety measures in place : bed on lowest position with side rails x2 up for safety, call light within reach. Will continue to monitor closely and offer help.
[2017-08-07 20:00] VITALS: BP 117/62
--- NOTE | 2017-08-08 06:35 | NUR ---
START OF SHIFT NOTE : Pt. is a 31 year old female, admitted under the care of Dr. Behzad Woods for medically supervised detoxification from opiates and methamphetamine on 08/06/2017. Pt. is NKA, FULL Code, on Reg. Diet. Skin warm and dry to touch. Complains of anxiety and is redirect able. Denies no seizure history and no allergies. Has past medical hx of depression, anxiety and restless legs, diagnosed in 2016. Pt remains compliant with the treatment plan. She started on Subutex 5 day taper on 08/07/2017, tolerating well. Pt remains compliant with the treatment plan. No PRNs were given during my shift. V/S remain WNL. RR=16, even and unlabored, lungs clear upon auscultation, abdomen soft and non- distended. Pt denies nausea, vomiting and diarrhea. LAST COWS=3 at 0400 , NZOFFY=081 ml, voided x 1, slept 11 hours. Safety measures in place : bed on lowest position with side rails x2 up for safety, call light within reach. Will continue to monitor closely and offer help.
--- NOTE | 2017-08-08 07:31 | NUR ---
BEGINNING OF SHIFT Patient is a 31 year old Female, with admitting Dx: Opiate/bzo Dependence, with substance use of methamphetamine. Patient with past medical history of: Anxiety, depression, and restless legs syndrome. Patient received no PRNs during date night caregiver. . Fall and seizure precautions in place. Patient skin is intact. Per date night caregiver patient slept for 11 hours, Patient with last cow score of: 3. Patient continues on Subutex taper as ordered and is scheduled to begin day 2 of taper. Patient received in bed awake, alert and oriented x4, educated patient regarding plan of care for the day and medication regimen with good verbal understanding. Safety measures in place. call light kept with in reach, will continue to monitor closely.
[2017-08-08 08:55] VITALS: BP 114/67
[2017-08-08] MEDS: ONDANSETRON 4 MG/2 ML VIAL IM PRN (09:07)
--- NOTE | 2017-08-08 09:07 | NUR ---
PRN ZOFRAN Patient c/o nausea with one episode of vomiting, administered Zofran injection as ordered, will monitor effectiveness of medication.
[2017-08-08] MEDS: GABAPENTIN 300 MG CAPSULE PO SCH ×3 (09:09→20:16)
[2017-08-08] MEDS: MULTIVITAMINS,THERAPEUTIC TABLET PO SCH (09:09)
[2017-08-08] MEDS: BUPRENORPHINE HCL 2 MG TAB.SUBL SL SCH ×3 (09:10→20:17)
--- NOTE | 2017-08-08 09:37 | NUR ---
ZOFRAN REASSESSMENT Patient reports medication effective, decrease in nausea no further episodes of vomiting noted, will continue to monitor.
[2017-08-08 11:07] LABS: HEPATITIS B SURFACE AG Negative (Negative)
[2017-08-08 13:05] VITALS: BP 120/70
[2017-08-08] MEDS: BACLOFEN 10 MG TABLET PO SCH ×2 (15:53→20:17)
[2017-08-08] MEDS: DICYCLOMINE HCL 20 MG TABLET PO SCH ×2 (15:53→20:17)
[2017-08-08 17:02] VITALS: BP 117/72
--- NOTE | 2017-08-08 18:59 | NUR ---
END OF SHIFT Patient alert and oriented x4, patient compliant with therapeutic plan of care. Vital signs were stable during shift. Patient continues on Subutex taper as ordered and is currently on day 2 of taper, well tolerated, no ASE noted. 0900 assessment presented with: sweats, restlessness, mild bone and joint aches, moist eyes, vomiting x1, nausea, irritability, and anxiety with cow score of: 14;1300 assessment patient presented with: c/o chills, difficulty sitting still, dilated pupils, mild bone and joint aches, tremors that can be felt but not seen, and anxiety with cow score of: 8; 1700 assessment patient presented with: c/o chills, difficulty sitting still, dilated pupils, mild bone and joint aches, tremors that can be felt but not seen, and anxiety with cow score of: 8; Detox medication effective at reducing withdrawal symptom. Patient was administered PRN: Zofran IM as ordered during shift, medication effective thirty minutes post administration. Patient was encouraged to increase PO fluid intake as tolerated. Patient denies SI/HI. MD is aware of patients current status, continues under close observation. Patient endorsed to warehouse worker 2nd shift nurse, all pertinent information discussed.
--- NOTE | 2017-08-08 19:45 | NUR ---
start of shift Patient is a 31 year old female admitted to [facility] on 08/06/17 for opiate detox. She is a full code, on a regular diet, and has NKA. She is on fall precautions. She reports no seizure history. PMH of Anxiety, restless leg syndrome, and depression. Last COWS 8 Vital signs stable. Patient received IM Zofran on AM shift. Patient denies any further vomiting/nausea. No complaints offered at change of shift. Patient in bed resting with eyes closed. Report received from AM nurse.
[2017-08-08 20:00] VITALS: BP 108/68
[2017-08-09] VITALS (7 sets, daily range): BP systolic 111–134; BP diastolic 65–89
--- NOTE | 2017-08-09 | NUR ---
COWS DEFERRED COWS DEFERRED AT 0000. PATIENT ASLEEP.
[2017-08-09] MEDS: ONDANSETRON 4 MG/2 ML VIAL IM PRN (03:22)
--- NOTE | 2017-08-09 03:22 | NUR ---
PRN Medication Zofran 4mg IM administered at 0322 for emesis x 1. Effect pending.
--- NOTE | 2017-08-09 03:52 | NUR ---
REASSESSMENT OF PATIENT Patient reassessed 30 minutes post Zofran 4mg IM given for emesis. Patient resting comfortably with no further emesis noted.
--- NOTE | 2017-08-09 06:39 | NUR ---
End of Shift note Patient is a 31 year old female admitted to [facility] on 08/06/17 for opiate detox. She is a full code, on a regular diet, and has NKA. She is on fall precautions. She reports no seizure history. PMH of Anxiety, restless leg syndrome, and depression. Patient on subutex taper. Vital signs at 2000 BP 108/68, P 60, R 18, SPO2 100% on RA, T 98.4. COWS 6. Vital signs at 0000 BP 134/89, P 61, R 17, SPO2 100% on RA, T 99.0. COWS deferred for sleep. VS at 0400 BP 129/65, P 55, R 18, SPO2 98% on RA, T 98.5. COWS 8. Patient had episode of emesis and received zofran 4mg IM at 0322. No further emesis noted. Patient intake 400 ml output 1 episode of emesis, 1 void. Slept 10 hours. Safety measures in place. Bed locked in lowest position. 2 side rails up for safety. Report to AM nurse.
--- NOTE | 2017-08-09 08:25 | NUR ---
START OF SHIFT NOTE 31 female, admitted 08/06/17 for Heroin, Meth and Xanax dependence. History of anxiety and depression, restless leg syndrome. No history of seizure. History of 2 Detox and 2 rehab treatments. ON 5 day Subutex taper. EUNICE. Received report from night RN. Emesis x 1 and given PRN Xofran IM at 0322. No further emesis during shift superintendent caustic cresylate. Slept 10 hrs. At 0400, COWS 8, very sleepy, sleeping at each 1 hour RN round. Night RN encouraging po intake and fluid, drank 400 ml fluids last night. Vitals WNL. On 0800 rounds, Pt sleeping, respirations regular and unlabored. Bed in low position, side rails up x 2 and padded, call light within reach. On fall and seizure precautions. Will continue to monitor.
[2017-08-09] MEDS ORDERED: BUPRENORPHINE HCL 2 MG TAB.SUBL SL SCH (09:00)
[2017-08-09] MEDS: BACLOFEN 10 MG TABLET PO SCH ×2 (11:07→14:38)
[2017-08-09] MEDS: MULTIVITAMINS,THERAPEUTIC TABLET PO SCH (11:07)
[2017-08-09] MEDS: DICYCLOMINE HCL 20 MG TABLET PO SCH ×3 (11:07→20:34)
[2017-08-09] MEDS: GABAPENTIN 300 MG CAPSULE PO SCH ×3 (11:07→20:34)
[2017-08-09] MEDS ORDERED: BUPRENORPHINE HCL 2 MG TAB.SUBL SL ONE (11:30)
--- NOTE | 2017-08-09 11:30 | NUR ---
LATE ADMINISTRATION OF MEDICATION 0900 dose subutex late beyond 1000. Called Dr. Woods. One time dose given as ordered.
--- NOTE | 2017-08-09 12:55 | NUR ---
REFUSAL OF PRN MEDICATION Pt reports general body aches 6/10, nausea, anxiety 7/10. Offered PRN Zofran SL, Robaxin, Motrin, Vistaril. Medications obtained from [employer] but when offered pt refused. Medications returned.
[2017-08-09] MEDS: BUPRENORPHINE HCL 2 MG TAB.SUBL SL SCH ×2 (14:37→20:34)
[2017-08-09] MEDS ORDERED: DICYCLOMINE HCL 20 MG TABLET PO SCH (15:00)
[2017-08-09] MEDS: BACLOFEN 20 MG TABLET PO SCH ×2 (15:17→20:34)
[2017-08-09] MEDS: IV D5 1/2 NS 1000 ML 1,000 ML IV SCH ×2 (15:17→23:15)
--- NOTE | 2017-08-09 16:00 | NUR ---
START IVF D5 1/2 NS at 125 cc/hr per 22 g IV in right arm started.
--- NOTE | 2017-08-09 19:00 | NUR ---
END OF SHIFT NOTE 31 female, admitted 08/06/17 for Heroin, Meth and Xanax dependence. History of anxiety and depression, restless leg syndrome. No history of seizure. History of 2 Detox and 2 rehab treatments. ON 5 day Subutex taper. NKA. Started on IVF per Dr. Woods at 1600, 22 g IV in right wrist. Tolerating Subutex taper as evidenced by COWS 6 at 0800 and at 1200. At 1600, COWS 3. Pt reporting nausea, body aches and anxiety at 1300 but refused PRN Zofran, Bentyl, Robaxin, Motrin or Vistaril. Report given to night RN. Call light within reach, side rails up x 2 and padded, bed in low position and locked, seizure and fall precautions in place.
--- NOTE | 2017-08-09 19:45 | NUR ---
START OF SHIFT NOTE PATIENT IS A 31 YEAR OLD FEMALE ADMITTED ON 08-06-17 FOR OPIATE DETOX. SHE IS CURRENTLY ON A SUBUTEX TRAPER. SHE WAS STARTED ON IV FLUIDS ON AM SHIFT AFTER NOTED DEPLETION OF CONSUMPTION OF FLUIDS/FOOD. PATIENT HAS IV TO RIGHT ARM D5 1/2 RUNNING AT 125 ML PER HOUR,. IV SITE NOTED TO BE WITHOUT EDEMA OR REDNESS NOTED. NO PAIN TO AREA. PATIENT IN BED AT CHANGE OF SHIFT CLEAR AND COHERENT ORIENTED X3. STATES SHE IS GOING TO TRY AND EAT SOME DINNER, AND REQUESTED A VITAMIN WATER. PATIENT DENIES ANY NAUSEA OR VOMITING AT PRESENT. SIDE RAILS UP X 2 PADDED. BED LOCKED AND IN LOWEST POSITION. CALL LIGHT WITHIN REACH. REPORT RECEIVED FROM AM NURSE. LAST COWS 3 AT 1600.
[2017-08-10] VITALS (7 sets, daily range): BP systolic 92–118; BP diastolic 55–81
--- NOTE | 2017-08-10 | NUR ---
COWS DEFERRED 0000 COWS DEFERRED FOR SLEEP
--- NOTE | 2017-08-10 04:00 | NUR ---
COWS DEFERRED 0400 COWS DEFERRED FOR SLEEP
--- NOTE | 2017-08-10 06:47 | NUR ---
END OF SHIFT NOTE: PATIENT IS A 31 YEAR OLD FEMALE ADMITTED ON 08-06-17 FOR OPIATE DETOX. SHE IS CURRENTLY ON A 5 DAY SUBUTEX TAPER. SHEIS CURRENTLY ON D5 1/2 NS IV @ 125 ML PER HOUR. PATIENT HAS IV TO RIGHT ARM, IV SITE NOTED TO BE WITHOUT EDEMA OR REDNESS OR PAIN TO AREA. PATIENT IN ALL OF SHIFT. PATIENT DENIES ANY NAUSEA OR VOMITING. HOLDING DOWN SMALL AMOUNTS OF ORAL FLUIDS, AND NUTRITION. WITHDRAWN. FATIGUED. VITAL SIGNS AT 2000 BP 112/75, P 69, R 16, T 98.0, SPO2 96% ON RA. COWS 8. VS AT 0000 BP 103/66 P 64, R 14, SPO2 94% RA T 98.4. COWS DEFERRED FOR SLEEP. VS AT 0400 BP 113/64, P 68, R 16, SPO2 96% ON RA, T 97.6. INTAKE 2500ML OUTPUT 2 VOIDS SLEPT 9 HOURS. COWS DEFERRED FOR SLEEP. SIDE RAILS UP X 2 PADDED. BED LOCKED AND IN LOWEST POSITION. FALL AND SEIZURE PRECAUTION IN PLACE. CALL LIGHT WITHIN REACH. REPORT RECEIVED FROM AM NURSE. REPORT TO AM NURSE.
[2017-08-10] MEDS: IV D5 1/2 NS 1000 ML 1,000 ML IV SCH (07:50)
--- NOTE | 2017-08-10 08:30 | NUR ---
START OF SHIFT NOTE 31 year old female, admitted for opiate and meth dependence, also with occasional Xanax use. History of anxiety, depression and restless leg syndrome. NKA. No seizure history. On cythk1rd 5 day taper. On IVF D5 1/2 NS at 125 cc/hr. Report received from night RN. Last COWS 8. Slept 9 hours. Drank 1000 ml. O800 Pt rounds with patient sleeping but alert to verbal. Encouraged increase po intake and fluid intake. COWS 4 and CIWA 3. Bed in low position, locked, side rails padded and up x 2, call wise within reach. Will continue to monitor. Addendum: 08/10/17 at 1025 by HARVEY DUNBAR RN D5 1/2 NS IVF infusing per 22 g IV in right wrist. Site without redness or swelling, dressing dry and intact.
[2017-08-10] MEDS: FAMOTIDINE 20 MG TABLET PO SCH (08:53)
[2017-08-10] MEDS: MULTIVITAMINS,THERAPEUTIC TABLET PO SCH (08:53)
[2017-08-10] MEDS: BACLOFEN 20 MG TABLET PO SCH ×3 (08:53→20:54)
[2017-08-10] MEDS: GABAPENTIN 300 MG CAPSULE PO SCH ×3 (08:54→20:54)
[2017-08-10] MEDS: DICYCLOMINE HCL 20 MG TABLET PO SCH ×3 (08:54→20:54)
[2017-08-10] MEDS: BUPRENORPHINE HCL 2 MG TAB.SUBL SL SCH ×3 (09:18→20:55)
[2017-08-10] MEDS: ONDANSETRON 4 MG/2 ML VIAL IM PRN ×4 (09:27→15:53)
--- NOTE | 2017-08-10 09:27 | NUR ---
PRN MEDICATION ADMINISTRATION Pt reports mild nausea, only ate pelaez on breakfast tray, drank "a couple capfuls" of water. RN gave Zofran 4 mg IM per right deltoid. Will reassess in 30 min.
--- NOTE | 2017-08-10 09:57 | NUR ---
PRN MEDICATION REASSESSMENT Pt now reports nausea 11/23, decreased from 3/10. Ate about 25 percent of breakfast, no fluid intake. Encouraged pt to finish bottle of water in next hour and pt agrees to try. Will continue to monitor.
[2017-08-10] MEDS: KETOROLAC TROMETHAMINE 30 MG INJ IM PRN ×2 (11:04→21:05)
--- NOTE | 2017-08-10 11:04 | NUR ---
PRN MEDICATION ADMINISTRATION Pt reports pain 4/10 in lower and upper back and bilateral thighs. Requesting Toradol injection. Injection given.
--- NOTE | 2017-08-10 11:34 | NUR ---
PRN MEDICATION REASSESSMENT Pt reports pain now 0/10 after toradol injeciton.
--- NOTE | 2017-08-10 13:00 | NUR ---
PO AND FLUID INTAKE Dr. Woods had discontinued IVF. RN notified MD that patient has only consumed less than 25 percent or less of breakfast this am and has only consumed 100-200 cc fluid despite RN encouragement to eat and drink. MD to place order to continue IVF at 125 cc per hour as previously ordered. States IVF not to stop until po intake over 25 percent. Pt had complained of nausea 3/10 this am and received Zofran IM at 0927. 30 minutes later pt reported nausea decreased to 1/10. Currently pt reports nausea mild, 1/10. Also encouraging Pt to take shower today and she states she wants to. Requested Pt try to eat her lunch and take fluids and then will saline lock IV for shower purposes. Pt verbalized agreement.
[2017-08-10] MEDS ORDERED: IV D5 1/2 NS 1000 ML 1,000 ML IV PRN (15:00)
--- NOTE | 2017-08-10 15:53 | NUR ---
PRN MEDICATION ADMINISTRATION Pt reports nausea 3/, requesting zofran IM injection. Injection given.
--- NOTE | 2017-08-10 16:23 | NUR ---
PRN MEDICATION REASSESSMENT Pt reports nausea remains 3/10, however Pt states this may be because she got out of bed for the first time and showered. Pt's IVF saline locked for shower and then for patient to go to patio.
--- NOTE | 2017-08-10 19:14 | NUR ---
END OF SHIFT NOTE 31 year old female, admitted for opiate and meth dependence, also with occasional Xanax use. History of anxiety, depression and restless leg syndrome. NKA. No seizure history. On [id number] 5 day taper. On IVF D5 1/2 NS at 125 cc/hr. 22 gauge IV site in right wrist without redness or swelling, dressing dry and intact. Tolerating Subutex taper as evidenced by the following scores. At 0800, COWS 4 . At 1200, COWS 3. At 1600, COWS 4. IVF continued at 125 cc/hr due to less than 25 percent intake at breakfast and lunch. Encouraging Pt to increase intake and fluids. Pt states she has mild nausea but is afraid she will start having emesis. States she had emesis the first few days of treatment. Given Zofran IM at 0927 for nausea 3/10 and in 30 minutes her nausea decreased to 1/10. Repeated Zofran IM at 1553 per Pt request for nausea 3/10, however in 30 minutes nausea remained 3/10. IVF saline locked for Pt to go to shower and to patio. Given Toradol IM at 1104 for back and thigh pain 4/10 with resulting decrease in pain in 30 minutes to 0/10. 1830, Pt drank 500 cc with dinner and ate 50 percent. IVR and IV discontinued. Report given to night RN. Bed in low position, locked, side rails padded and up x 2, call wise within reach.
--- NOTE | 2017-08-10 19:41 | NUR ---
START OF SHIFT PATIENT IS A 31 YEAR OLD FEMALE ADMITTED TO [facility] ON 08-06-17 FOR OPIATE DETOX. PATIENT IS ON A FIVE DAY SUBUTEX TAPER. SHE HAS NO KNOWN ALLERGIES, IS A FULL CODE AND ON A REGULAR DIET. PATIENT HAS NO SEIZURE HISTORY. SHE IS ON FALL PRECAUTIONS, IN PLACE WITHOUT INCIDENT. PATIENT HAD IV DISCONTINUED ON AM SHIFT SHE IS NOW ABLE TO TOLERATE DIET AND FLUIDS AD ANA WITHOUT N/V. PATIENT HAS SHOWERED, STATES SHE IS FEELING BETTER, AND AT CHANGE OF SHIFT REPORTS SHE ATE MOST OF HER DINNER, AND HAS BEEN DRINKING VITAMIN WATER. SHE DENIES SI OR HI. MOOD APPEARS STABLE. LAST COWS WAS 4. VITAL SIGNS ARE STABLE. SAFETY MEASURES IN PLACE. REPORT RECEIVED FROM AM NURSE.
--- NOTE | 2017-08-10 21:05 | NUR ---
PRN MEDICATION PATIENT REPORTING INCREASED PAIN OF 7 ON SCALE OF 1-10 IN FRONT OF THIGHS BILATERALLY WELL 8-9 IN LOWER BACK PRN TORODOL 30 MG IM ADMINISTERED TO LEFT DELTOID. EFFECT PENDING
[2017-08-10] MEDS: TRAZODONE 50 MG TABLET PO PRN (22:01)
--- NOTE | 2017-08-10 22:01 | NUR ---
PRN MEDICATION PATIENT REPORTS DIFFICULTY SLEEPING REQUESTED AND GIVEN TRAZODONE 50 MG PO PRN AT 2201. EFFECT PENDING.
--- NOTE | 2017-08-10 22:05 | NUR ---
REASSESSMENT OF PATIENT REASSESSMENT OF PATIENT ONE HOUR AFTER TORODOL 30 MG IM ADMINISTERED FOR SEVERE PAIN IN BACK AND BILATERAL LOWER EXTREMITIES. PATIENT REPORTS GOOD EFFECT, STATES NO PAIN PRESENT AT REASSESSMENT TIME.
--- NOTE | 2017-08-10 23:01 | NUR ---
REASSESSMENT OF PATIENT PATIENT REASSESSED ONE HOUR AFTER ADMINISTRATION OF TRAZODONE 50 MG PO FOR INSOMNIA. PATIENT RESTING COMFORTABLY IN BED WITH EYES CLOSED. TRAZODONE WITH NOTED EFFECTIVENESS.
[2017-08-11] VITALS: BP 95/59
--- NOTE | 2017-08-11 | NUR ---
COWS DEFERRED 0000 COWS DEFERRED FOR SLEEP.
[2017-08-11 04:00] VITALS: BP 94/60
--- NOTE | 2017-08-11 04:00 | NUR ---
COWS DEFERRED 0400 COWS DEFERRED FOR SLEEP.
--- NOTE | 2017-08-11 06:49 | NUR ---
END OF SHIFT NOTE PATIENT IS A 31 YEAR OLD FEMALE ADMITTED ON 08-06-17 FOR OPIATE DETOX. SHE IS ON A FIVE DAY SUBUTEX TAPER. SHE IS A FULL CODE, ON A REGULAR DIET, WITH NKA. SHE IS ON FALL PRECAUTIONS. PATIENT VS AT 1999 95/59, 60, 17, SPO2 100 % ON RA, COWS 3. COWS RECHECKED AT 2056 INCREASED TO 6. PATIENT VITAL SIGNS AT 0000 BP 92/68, P 86, R 16, SPO2 99% ON RA, T 98.4. COWS DEFERRED FOR SLEEP. PATIENT VITAL SIGNS 0400 BP 94/60, P 84, R 16, SPO2 99 % ON RA, T 97.8. COWS DEFERRED FOR SLEEP. INTAKE 950 ML, OUTPUT 2 VOIDS, 1 BM. SLEPT A TOTAL OF [address]ETY MEASURES IN PL[address] REPORT GIVEN TO AM NURSE.
--- NOTE | 2017-08-11 07:00 | NUR ---
Start of Shift Notes: Received patient in her room. Alert and oriented x 4. Verbally responsive. Able to make needs known. Respirations even and unlabored. No SOB noted. Skin warm and dry to touch. Abdomen soft and non-distended with (+) BS in all 4 quadrants. No complains of N/V/D or constipation noted at this time. Bladder non-distended. No complains of dysuria noted. Voids independently. Ambulatory ad dion with steady gait. Patient is a 31 year old female admitted for opiate and methamphetamine dependence who was placed on a 5-day Subutex taper as ordered. No adverse reactions noted. Has past medical hx of anxiety, depression, and restless leg syndrome. NKA. FULL CODE. Regular diet. On fall and seizure precautions. Educated patient on her current plan of care for the day and her medication regimen. Encouraged oral fluid intake and encouraged group participation to learn new skills to prevent relapse.
[2017-08-11 08:00] VITALS: BP 90/66
[2017-08-11] MEDS ORDERED: BUPRENORPHINE HCL 2 MG TAB.SUBL SL SCH (09:00)
[2017-08-11] MEDS: GABAPENTIN 300 MG CAPSULE PO SCH ×3 (09:03→21:06)
[2017-08-11] MEDS: FAMOTIDINE 20 MG TABLET PO SCH (09:04)
[2017-08-11] MEDS: MULTIVITAMINS,THERAPEUTIC TABLET PO SCH (09:04)
[2017-08-11] MEDS: BACLOFEN 20 MG TABLET PO SCH ×3 (09:04→21:06)
[2017-08-11] MEDS: DICYCLOMINE HCL 20 MG TABLET PO SCH ×3 (09:04→21:06)
[2017-08-11 12:00] VITALS: BP 99/65
[2017-08-11] MEDS: KETOROLAC TROMETHAMINE 30 MG INJ IM PRN ×2 (15:19→21:32)
--- NOTE | 2017-08-11 15:19 | NUR ---
Toradol 30 mg IM given: Patient verbalized pain 8/10 generalized due to her withdrawal symptoms. Non-pharmacological interventions were provided but ineffective. Medicated patient with Toradol 30 mg IM as ordered. Will monitor for effectiveness.
--- NOTE | 2017-08-11 15:49 | NUR ---
Re-assessment: Patient reports pain decreased to 4/10 from 8/10. PRN Toradol was effective.
[2017-08-11 16:00] VITALS: BP 100/65
[2017-08-11] MEDS ORDERED: BACL20TA PO (18:26)
[2017-08-11] MEDS ORDERED: DIPH50CA37 PO (18:26)
[2017-08-11] MEDS ORDERED: FAMO20TA8 PO (18:26)
[2017-08-11] MEDS ORDERED: HYDR-3895 PO (18:26)
[2017-08-11] MEDS ORDERED: GABA-534 PO (18:26)
[2017-08-11] MEDS ORDERED: TRAZ-144 PO (18:26)
[2017-08-11] MEDS ORDERED: IBUP-1955 PO (18:26)
[2017-08-11] MEDS ORDERED: DICY20TA28 PO (18:26)
--- NOTE | 2017-08-11 18:56 | NUR ---
End of Shift Notes: Patient completed her 5-day Subutex taper as ordered. Tolerating taper well. No adverse reactions noted. VS monitored closely. No significant abnormalities noted. Withdrawal symptoms were closely monitored. Initial COWS 4, patient presented with body aches, and anxiety. Per patient, Subutex has been helping her with her withdrawal symptoms. Last COWS 2. PRN Toradol 30 mg IM given at 1519 for 06/23 generalized patient due to her withdrawal symptoms with help after 30 minutes. Patient compliant with care and treatment. Able to participate in group and activities. All needs met and attended. Will continue to monitor closely.
--- NOTE | 2017-08-11 19:15 | NUR ---
Start of Shift Note: Patient is a 31 y.o female admitted on 08/06/17 for Heroin and Meth dependence. Patient reported using Heroin 1.5 g IV daily & smokes Meth 0.2gram daily for 2 months. Patient has PMHx of Anxiety, Depression & Restless legs symdome. Patient is on a regular diet with no known food and drug allergies. Full Code status. Patient completed her Subutex taper and she is scheduled to be discharge tomorrow. Last COWS 2. Patient was given PRN Toradol during day shift. Patient is alert & oriented x4. No shortness of breath noted. Respiration even & unlabored. Abdomen soft & non-distended. No nausea/vomiting noted. Patient complains chills & 8/10 back and legs pain. No hand tremors noted. Safety measures in place. Bed locked in lowest position. Both side rails up. Call light within pt's reach. Will continue to monitor patient.
[2017-08-11 20:00] VITALS: BP 110/70
[2017-08-11] MEDS: TRAZODONE 50 MG TABLET PO PRN (21:33)
--- NOTE | 2017-08-11 21:33 | NUR ---
PRN Toradol IM Patient verbalized pain 8/10 back and legs pain. PRN Toradol IM administered on left buttocks. Will monitor for effectiveness of medication.
--- NOTE | 2017-08-11 22:33 | NUR ---
PRN Reassessment PRN medication was effective. Patient verbalized slight relief from pain. 4/10 pain noted at this time. Patient observed lying in bed at this time. Will continue to monitor patient.
[2017-08-12] VITALS: BP 105/76
--- NOTE | 2017-08-12 07:11 | NUR ---
End of Shift Note: Patient had an uneventful night. Patient completed her taper and she is scheduled to be discharge today. Last COWS is 5. Patient received PRN Toradol for back and leg pain & Trazodone for sleep and was effective. Patient remained stable and vitals remains WNL. Patient remains compliant with medications and treatment plan. Patient is alert & oriented x4. No s/s of distress noted. Patient still asleep at this time. Patient slept for a total of 7 hours. Pt consumed 1800ml of fluids. Voided 3x with no bowel movement. All needs attended & met. Safety measures in place. Will endorse pt to day shift nurse.
--- NOTE | 2017-08-12 07:15 | NUR ---
Start Of Shift Report received. Patient is a 31 y/o female admitted on 08/06/17 for Heroin and Meth dependence. Patient Pt is full code regular diet on fall and seizure precautions denies any food or drug allergies. Patient has PMHx of Anxiety, Depression & Restless legs syndrome. Patient completed her Subutex taper and she is scheduled to be discharge today. Last COWS 5 @0000. Patient received PRN Toradol for back and leg pain & Trazodone for sleep all medications were effective per overnight stocker nurse. Patient is alert & oriented x4, skin intact. Encouraged pt to drink more fluids to facilitate detox process. Pt slept a total of 7 hours. All safety measures in place, bed in lowest locked position, will continue to monitor and provide care.
[2017-08-12 08:00] VITALS: BP 110/66
[2017-08-12] MEDS: DICYCLOMINE HCL 20 MG TABLET PO SCH (09:02)
[2017-08-12] MEDS: BACLOFEN 20 MG TABLET PO SCH (09:02)
[2017-08-12] MEDS: MULTIVITAMINS,THERAPEUTIC TABLET PO SCH (09:02)
[2017-08-12] MEDS: GABAPENTIN 300 MG CAPSULE PO SCH (09:02)
[2017-08-12] MEDS: FAMOTIDINE 20 MG TABLET PO SCH (09:02)
--- NOTE | 2017-08-12 09:50 | NUR ---
DISCHARGE NOTE Pt is in stable condition. Vitals WNL, Pt alert and oriented x4, skin intact, Pt denies any SI/HI. All discharge paperwork completed dated and signed. Pt educated about discharge instructions, what to do after discharge when to contact MD as well as the s/s reportable to MD, pt verbalized understanding. Pt was provided with all of her discharge paperwork. Pt's last COWS:1 taken at 0800. Pt was discharged from [facility] on 08/12/17 at 0945. Pt left the building with all of her belongings, prescriptions and home medications. MD and psychiatrist have been contacted notified and aware of pt's d/c.
== END 2017-08-12 09:45 | disposition other institution (70) | DRG 895 ==
LOC: SRC 22:28
PROVIDERS: ADMIT Internal Medicine; ATTEND Internal Medicine
PROC: HZ2ZZZZ Detoxification Services for Substance Abuse Treatment (ICD-10-PCS; principal; 2017-08-06)
PROC: HZ31ZZZ Individual Counseling for Substance Abuse Treatment, Behavioral (ICD-10-PCS; 2017-08-09)
PROC: HZ41ZZZ Group Counseling for Substance Abuse Treatment, Behavioral (ICD-10-PCS; 2017-08-11)
DX: F11.23 Opioid dependence with withdrawal (principal); F32.9 Major depressive disorder, single episode, unspecified; F15.10 Other stimulant abuse, uncomplicated; F17.290 Nicotine dependence, other tobacco product, uncomplicated; F41.9 Anxiety disorder, unspecified; G25.81 Restless legs syndrome; Z81.8 Family history of other mental and behavioral disorders; Z81.3 Family history of other psychoactive substance abuse and dependence; F13.10 Sedative, hypnotic or anxiolytic abuse, uncomplicated; Z91.89 Other specified personal risk factors, not elsewhere classified
CPT/HCPCS: 36415; 70030-TC; 80307; 80324; 80361; 83735; 84703; 85025; 86580; 86592; 86705; 86803; 87340; 87806; A4663; C1758; J1885; J2405; J3490; Q0162